=== PATIENT | female | born 2000 | race African-American/Black ===

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

== ENCOUNTER 2020-05-23 10:47 | Emergency (ER) | payer OTHER ==
[2020-05-23 10:57] VITALS: BP 111/73; PULSE 77; TEMP 98.1; BMI 16.5
[2020-05-23 11:20] LABS: EPI CELLS 31 /uL (0-25.1); HCG,QUALITATIVE URINE Negative; HYALINE CASTS 4 /uL (0-3.1); URINE APPEARANCE TURBID; URINE BACTERIA 1101 /uL (0-1359); URINE BILIRUBIN NEGATIVE (NEGATIVE); URINE COLOR YELLOW; URINE GLUCOSE (UA) NEGATIVE (NEGATIVE); URINE KETONE NEGATIVE (NEGATIVE); URINE LEUK ESTERASE 2+ (NEGATIVE); URINE NITRITE NEGATIVE (NEGATIVE); URINE PROTEIN TRACE (NEGATIVE); URINE RBC 47 /uL (0-23.9); URINE UROBILINOGEN 0.2 mg/dL (0.2-1.0); URINE WBC 2531 /uL (0-25.8)
== END 2020-05-23 11:46 | disposition home or self-care (01) ==
LOC: JER 10:47
DX: N30.00 Acute cystitis without hematuria (principal); J02.9 Acute pharyngitis, unspecified
CPT/HCPCS: 36415; 81003; 84703; 87070; 87086; 87491; 87591; 87880; 99283-25

== ENCOUNTER 2020-05-26 10:46 | Emergency (ER) | payer OTHER ==
[2020-05-26] MEDS ORDERED: AZITHROMYCIN 500 MG TABLET PO ONE (11:12)
[2020-05-26 11:19] VITALS: BP 112/54; PULSE 74; TEMP 98.1; BMI 22.2
[2020-05-26] MEDS ORDERED: AZITHROMYCIN 250 MG TABLET ONE (11:20)
== END 2020-05-26 11:26 | disposition home or self-care (01) ==
LOC: JERFT 10:46
DX: A54.9 Gonococcal infection, unspecified (principal)
CPT/HCPCS: 99284-25

== ENCOUNTER 2020-08-13 11:55 | Emergency (ER) | payer OTHER ==
[2020-08-13 12:06] VITALS: BP 115/61; PULSE 87; TEMP 98.2; BMI 22.4
[2020-08-13] MEDS ORDERED: NAPROXEN 500 MG TABLET PO ONE (12:29)
[2020-08-13] MEDS ORDERED: NAPROXEN 500 MG TABLET ONE (12:30)
== END 2020-08-13 13:08 | disposition home or self-care (01) ==
LOC: JER 11:55
DX: M25.562 Pain in left knee (principal)
CPT/HCPCS: 73562-TC-LT-FY; 99283-25

== ENCOUNTER 2020-09-09 10:45 | Emergency (ER) | payer OTHER ==
[2020-09-09 11:02] VITALS: BP 124/86; PULSE 96; TEMP 98.2; BMI 22.9
[2020-09-09 12:26] LABS: HCG,QUALITATIVE URINE Negative
[2020-09-09 12:27] LABS: EPI CELLS >36 /uL (0-25.1); HYALINE CASTS 7 /uL (0-3.1); URINE APPEARANCE CLOUDY; URINE BACTERIA 724 /uL (0-1359); URINE BILIRUBIN NEGATIVE (NEGATIVE); URINE COLOR YELLOW; URINE GLUCOSE (UA) NEGATIVE (NEGATIVE); URINE KETONE NEGATIVE (NEGATIVE); URINE LEUK ESTERASE 3+ (NEGATIVE); URINE NITRITE NEGATIVE (NEGATIVE); URINE PROTEIN TRACE (NEGATIVE); URINE RBC 23 /uL (0-23.9); URINE UROBILINOGEN 0.2 mg/dL (0.2-1.0); URINE WBC 199 /uL (0-25.8)
== END 2020-09-09 13:05 | disposition home or self-care (01) ==
LOC: JER 10:45
DX: N30.01 Acute cystitis with hematuria (principal)
CPT/HCPCS: 81003; 84703; 87086; 99283-25

== ENCOUNTER 2021-05-08 18:51 | Emergency (ER) | payer OTHER ==
[2021-05-08 18:59] VITALS: BMI 26.6
[2021-05-08] MEDS ORDERED: ACETAMINOPHEN 500 MG TABLET (FP) PO ONE (20:28)
[2021-05-08] MEDS ORDERED: ACETAMINOPHEN 500 MG TABLET (FP) ONE (20:30)
[2021-05-08 21:33] VITALS: BP 103/54; PULSE 95; TEMP 98
== END 2021-05-08 21:15 | disposition home or self-care (01) ==
LOC: JERFT 18:51 → JER 18:51
DX: O99.712 Diseases of the skin and subcutaneous tissue complicating pregnancy, second trimester (principal); L05.91 Pilonidal cyst without abscess; Z3A.20 20 weeks gestation of pregnancy
CPT/HCPCS: 99283-25

== ENCOUNTER 2021-08-12 20:31 | Emergency (ER) | payer OTHER ==
[2021-08-12 20:43] VITALS: TEMP 98.1; BMI 30.8
[2021-08-12 22:53] VITALS: BP 114/72; PULSE 102
== END 2021-08-12 22:35 | disposition home or self-care (01) ==
LOC: JER 20:31
DX: O99.513 Diseases of the respiratory system complicating pregnancy, third trimester (principal); R09.81 Nasal congestion; Z3A.33 33 weeks gestation of pregnancy
CPT/HCPCS: 87804; 99283-25

== ENCOUNTER 2021-08-15 02:36 | Emergency (ER) | payer OTHER ==
[2021-08-15 03:10] VITALS: BMI 25.0
[2021-08-15 06:02] VITALS: BP 112/73; PULSE 98; TEMP 9709
== END 2021-08-15 05:19 | disposition home or self-care (01) ==
LOC: JER 02:36
DX: O26.893 Other specified pregnancy related conditions, third trimester (principal); R09.81 Nasal congestion; Z3A.34 34 weeks gestation of pregnancy
CPT/HCPCS: 99283-25

== ENCOUNTER 2021-09-24 16:55 | Inpatient (IN) | payer OTHER ==
[2021-09-24] MEDS ORDERED: ELECTROLYTE-148 SOLN 1,000 ML IV SCH (18:15)
[2021-09-24 18:32] VITALS: BMI 33.3
[2021-09-24] MEDS ORDERED: PROMETHAZINE HCL 25 MG/1 ML VIAL IVPUSH ONE (18:46)
[2021-09-24] MEDS ORDERED: BUTORPHANOL TARTRATE 1 MG/ML VIAL IVPB ONE (18:46)
[2021-09-24] MEDS ORDERED: OXYTOCIN 10 UNITS/ML VIAL ONE (19:05)
[2021-09-24 19:13] LABS: BASO % 0.2 % (0-2.0); EOS % 0.8 % (0-4.5); HEMOGLOBIN 14.1 GM/dL (10.7-15.3); LYMPH % 13.2 % (8-40); MCH 30.7 pg (25.7-33.7); MCHC 34.3 g/dl (32.0-36.0); MEAN CELL VOLUME 89.5 fl (80-96); MONO % 4.7 % (3.8-10.2); NEUT % 81.1 % (42.8-82.8); PLATELET COUNT 223 10^3/uL (134-434); RBC 4.58 M/mm3 (3.60-5.2); RDW 13.7 % (11.6-15.6); WHITE BLOOD COUNT 12.9 K/mm3 (4.0-10.0)
[2021-09-24] MEDS ORDERED: WITCH HAZEL 50% (TUCKS) 40 PAD/JAR PAD TP PRN (19:28)
[2021-09-24] MEDS ORDERED: OXYTOCIN 10 UNITS/ML VIAL IM ONE (19:28)
[2021-09-24] MEDS ORDERED: METHYLERGONOVINE MALEATE 0.2 MG/1 ML AMP IM PRN (19:28)
[2021-09-24] MEDS ORDERED: BENZOCAINE 20% 57 GM BOTTLE TP PRN (19:28)
[2021-09-24] MEDS ORDERED: ACETAMINOPHEN 325 MG TABLET (FP) PO PRN (19:28)
[2021-09-24] MEDS ORDERED: BISACODYL 10 MG SUPP.RECT RC PRN (19:28)
[2021-09-24] MEDS ORDERED: BENZOCAINE 28 GM HEMORRHOIDAL OINTMENT TP PRN (19:28)
[2021-09-24] MEDS ORDERED: oxyCODONE HCL 5 MG TABLET PO PRN (19:28)
[2021-09-24 19:29] LABS: CALCIUM 9.2 mg/dL (8.5-10.1)
[2021-09-24 19:30] LABS: BLOOD UREA NITROGEN 6.5 mg/dL (7-18)
[2021-09-24] MEDS ORDERED: OXYTOCIN 20 UNITS in 0.9% NS 20 UNIT/1,000 ML INFUS.BAG IV SCH (19:30)
[2021-09-24 19:33] LABS: CREATININE 0.5 mg/dL (0.55-1.3)
[2021-09-24 19:36] LABS: ACTIVATED PTT 29.5 SECONDS (25.2-36.5); INR 0.97 (0.83-1.09); PROTHROMBIN TIME (PATIENT) 11.2 SEC (9.7-13.0)
[2021-09-24] MEDS: IBUPROFEN 600 MG TABLET (FP) PO PRN (20:00)
[2021-09-25] MEDS: IBUPROFEN 600 MG TABLET (FP) PO PRN ×4 (03:00→19:12)
[2021-09-25 07:13] LABS: BASO % 0.1 % (0-2.0); EOS % 1.2 % (0-4.5); HEMATOCRIT 36.6 % (32.4-45.2); HEMOGLOBIN 12.5 GM/dL (10.7-15.3); MCH 30.4 pg (25.7-33.7); MCHC 34.1 g/dl (32.0-36.0); MEAN CELL VOLUME 89.1 fl (80-96); MEAN PLT VOLUME 8.1 fl (7.5-11.1); MONO % 5.3 % (3.8-10.2); NEUT % 68.4 % (42.8-82.8); PLATELET COUNT 212 10^3/uL (134-434); RBC 4.11 M/mm3 (3.60-5.2); WHITE BLOOD COUNT 11.5 K/mm3 (4.0-10.0)
[2021-09-25] MEDS: PRENATAL VITAMINS W/ FOLIC ACID TABLET (FP) PO SCH (09:02)
[2021-09-25 21:32] VITALS: PULSE 96
[2021-09-25] MEDS ORDERED: SENNOSIDES/DOCUSATE COMBO (SENNA PLUS) TABLET (UD) PO PRN (22:00)
[2021-09-26] MEDS: IBUPROFEN 600 MG TABLET (FP) PO PRN ×2 (01:35→07:28)
[2021-09-26] MEDS: PRENATAL VITAMINS W/ FOLIC ACID TABLET (FP) PO SCH (09:25)
[2021-09-26 13:34] VITALS: BP 117/74; TEMP 98.4
[2021-09-27 01:23] LABS: HIV INTERPRETATION NEGATIVE (NEGATIVE)
== END 2021-09-26 13:15 | disposition home or self-care (01) | DRG 807 ==
LOC: JLDR 16:55 → J3W 21:27
PROVIDERS: ADMIT Obstetrics & Gynecology; ATTEND Obstetrics & Gynecology
PROC: 10E0XZZ Delivery of Products of Conception, External Approach (ICD-10-PCS; principal; 2021-09-24)
DX: O42.02 Full-term premature rupture of membranes, onset of labor within 24 hours of rupture (principal); Z37.0 Single live birth; O70.0 First degree perineal laceration during delivery; Z3A.40 40 weeks gestation of pregnancy
CPT/HCPCS: 36415; 59409; 80048; 85025; 85610; 85730; 86780; 86850; 86900; 86901; 87389; C9803-CS; U0003; U0005

== ENCOUNTER 2021-10-16 08:09 | Emergency (ER) | payer OTHER ==
[2021-10-16 08:33] VITALS: BP 102/69; PULSE 80; TEMP 98.4; BMI 30.2
== END 2021-10-16 09:41 | disposition home or self-care (01) ==
LOC: JER 08:09 → JERFT 08:09
DX: L05.91 Pilonidal cyst without abscess (principal)
CPT/HCPCS: 99282-25

== ENCOUNTER 2021-10-18 21:12 | Emergency (ER) | payer OTHER ==
[2021-10-18 21:36] VITALS: BP 108/61; PULSE 108; TEMP 98.4; BMI 30.2
== END 2021-10-19 01:51 | disposition home or self-care (01) ==
LOC: JER 21:12 → JERFT 21:12 → JER 10-19 01:51
PROC: 0H98XZZ Drainage of Buttock Skin, External Approach (ICD-10-PCS; principal; 2021-10-18)
DX: L05.91 Pilonidal cyst without abscess (principal)
CPT/HCPCS: 99282-25

== ENCOUNTER 2022-05-21 22:44 | Emergency (ER) | payer OTHER ==
[2022-05-21 22:50] VITALS: BP 115/77; PULSE 72; RESP 16; TEMP 98; BMI 26.3
== END 2022-05-22 04:05 | disposition left against medical advice (07) ==
LOC: JER 22:44
DX: Z20.2 Contact with and (suspected) exposure to infections with a predominantly sexual mode of transmission (principal)
CPT/HCPCS: 99282-25

== ENCOUNTER 2022-05-23 19:27 | Emergency (ER) | payer OTHER ==
[2022-05-23 19:47] VITALS: BP 114/80; PULSE 85; RESP 19; TEMP 98.3; BMI 41.8
[2022-05-23 21:22] LABS: EPI CELLS >36 /uL (0-25.1); HYALINE CASTS 5 /uL (0-3.1); URINE APPEARANCE CLOUDY; URINE BACTERIA 887 /uL (0-1359); URINE BILIRUBIN NEGATIVE (NEGATIVE); URINE COLOR YELLOW; URINE GLUCOSE (UA) NEGATIVE (NEGATIVE); URINE KETONE TRACE (NEGATIVE); URINE LEUK ESTERASE 2+ (NEGATIVE); URINE NITRITE NEGATIVE (NEGATIVE); URINE PROTEIN NEGATIVE (NEGATIVE); URINE RBC 6 /uL (0-23.9); URINE WBC 180 /uL (0-25.8)
== END 2022-05-23 20:55 | disposition home or self-care (01) ==
LOC: JER 19:27 → JERFT 19:27
DX: Z11.3 Encounter for screening for infections with a predominantly sexual mode of transmission (principal)
CPT/HCPCS: 36415; 81003; 86780; 87086; 87491; 87529; 87591; 99283-25

== ENCOUNTER 2022-06-24 05:02 | Emergency (ER) | payer OTHER ==
[2022-06-24 05:13] VITALS: BP 105/69; PULSE 82; RESP 20; TEMP 98.2; BMI 37.0
[2022-06-24] MEDS ORDERED: ALBUTEROL SO4 2.5/IPRATROPIUM 0.5 INH SOL 3 ML VIAL.NEB. NEB ONE ×2 (05:25→05:28)
[2022-06-24] MEDS ORDERED: predniSONE 20 MG TABLET (UD) PO ONE (05:25)
[2022-06-24] MEDS ORDERED: predniSONE 20 MG TABLET (UD) ONE (05:29)
== END 2022-06-24 06:34 | disposition home or self-care (01) ==
LOC: JER 05:02
DX: J45.901 Unspecified asthma with (acute) exacerbation (principal); Z20.822 Contact with and (suspected) exposure to COVID-19
CPT/HCPCS: 0241U-QW; 99283-25

== ENCOUNTER 2023-05-10 15:32 | Emergency (ER) | payer OTHER ==
[2023-05-10 15:40] VITALS: BMI 35.2
[2023-05-10 17:06] LABS: BASO % 0.6 % (0-2.0); EOS % 3.6 % (0-4.5); HEMATOCRIT 43.1 % (32.4-45.2); HEMOGLOBIN 14.3 GM/dL (10.7-15.3); MCH 27.7 pg (25.7-33.7); MCHC 33.2 g/dl (32.0-36.0); MEAN CELL VOLUME 83.4 fl (80-96); MEAN PLT VOLUME 7.7 fl (7.5-11.1); NEUT % 59.8 % (42.8-82.8); PLATELET COUNT 331 10^3/uL (134-434); RBC 5.17 M/mm3 (3.60-5.2); RDW 14.7 % (11.6-15.6); WHITE BLOOD COUNT 9.1 K/mm3 (4.0-10.0)
[2023-05-10 17:25] LABS: POTASSIUM 3.8 mmol/L (3.5-5.1)
[2023-05-10 17:27] LABS: BLOOD UREA NITROGEN 5.3 mg/dL (7-18)
[2023-05-10 17:30] LABS: CREATININE 0.7 mg/dL (0.55-1.3)
[2023-05-10] MEDS ORDERED: ARIPiprazole 5 MG TABLET PO ONE (22:00)
[2023-05-10] MEDS ORDERED: ARIPiprazole 5 MG TABLET ONE (22:04)
[2023-05-11 07:02] VITALS: RESP 18
[2023-05-11 09:53] VITALS: BP 115/58; PULSE 93; TEMP 98.3
[2023-05-11 11:27] LABS: EPI CELLS >36 /uL (0-25.1); HYALINE CASTS 2 /uL (0-3.1); URINE APPEARANCE CLEAR; URINE BACTERIA 962 /uL (0-1359); URINE BILIRUBIN NEGATIVE (NEGATIVE); URINE COLOR YELLOW; URINE GLUCOSE (UA) NEGATIVE (NEGATIVE); URINE KETONE NEGATIVE (NEGATIVE); URINE LEUK ESTERASE 2+ (NEGATIVE); URINE NITRITE NEGATIVE (NEGATIVE); URINE PROTEIN NEGATIVE (NEGATIVE); URINE RBC 26 /uL (0-23.9); URINE WBC 425 /uL (0-25.8)
[2023-05-11 14:05] LABS: PHENCYCLIDINE,URINE NEGATIVE (NEGATIVE)
[2023-05-11 14:06] LABS: COCAINE, UR NEGATIVE (NEGATIVE); OPIATES, URI NEGATIVE (NEGATIVE); URINE AMPHETAMINES NEGATIVE (NEGATIVE); URINE BARBITURATES NEGATIVE (NEGATIVE)
[2023-05-11 14:46] LABS: METHADONE, UR NEGATIVE (NEGATIVE); URINE BENZODIAZEPINES NEGATIVE (NEGATIVE)
== END 2023-05-11 13:49 | disposition home or self-care (01) ==
LOC: JER 15:32 → JERFT 15:32 → JER 05-11 13:49
DX: R21 Rash and other nonspecific skin eruption (principal); L53.9 Erythematous condition, unspecified
CPT/HCPCS: 36415; 80048; 80307; 81003; 84443; 85025; 87086; 93005; 93010; 99284-25

== ENCOUNTER 2023-05-26 13:45 | Emergency (ER) | payer OTHER ==
[2023-05-26 13:51] VITALS: BP 115/76; PULSE 82; RESP 18; TEMP 98.1; BMI 38.3
== END 2023-05-26 15:34 | disposition home or self-care (01) ==
LOC: JERFT 13:45
DX: Z32.02 Encounter for pregnancy test, result negative (principal)
CPT/HCPCS: 36415; 84703; 99283-25

== ENCOUNTER 2023-06-02 13:06 | Emergency (ER) | payer OTHER ==
[2023-06-02 13:21] VITALS: BP 113/71; PULSE 97; RESP 18; TEMP 98; BMI 39.4
== END 2023-06-02 16:23 | disposition home or self-care (01) ==
LOC: JER 13:06 → JERFT 13:06
DX: N64.4 Mastodynia (principal); Z32.02 Encounter for pregnancy test, result negative
CPT/HCPCS: 36415; 84703; 99283-25

== ENCOUNTER 2023-06-20 16:52 | Emergency (ER) | payer OTHER ==
[2023-06-20 16:59] VITALS: BP 109/75; PULSE 90; RESP 18; TEMP 97.8; BMI 39.1
[2023-06-20 18:16] LABS: BASO % 0.4 % (0-2.0); EOS % 3.8 % (0-4.5); HEMATOCRIT 40.1 % (32.4-45.2); HEMOGLOBIN 13.4 GM/dL (10.7-15.3); MCH 28.1 pg (25.7-33.7); MCHC 33.5 g/dl (32.0-36.0); MEAN CELL VOLUME 83.9 fl (80-96); MEAN PLT VOLUME 7.5 fl (7.5-11.1); MONO % 4.6 % (3.8-10.2); NEUT % 65.2 % (42.8-82.8); PLATELET COUNT 282 10^3/uL (134-434); RBC 4.78 M/mm3 (3.60-5.2); RDW 15.8 % (11.6-15.6); WHITE BLOOD COUNT 8.5 K/mm3 (4.0-10.0)
[2023-06-20 18:42] LABS: POTASSIUM 4.1 mmol/L (3.5-5.1)
[2023-06-20 18:44] LABS: ALBUMIN 3.2 g/dl (3.4-5.0); BLOOD UREA NITROGEN 5.8 mg/dL (7-18); CALCIUM 8.9 mg/dL (8.5-10.1)
[2023-06-20 18:47] LABS: CREATININE 0.6 mg/dL (0.55-1.3)
[2023-06-20 18:49] LABS: BILIRUBIN,TOTAL 0.2 mg/dL (0.2-1); TOT PROT 7.4 g/dl (6.4-8.2)
== END 2023-06-20 19:22 | disposition home or self-care (01) ==
LOC: JER 16:52
DX: O99.891 Other specified diseases and conditions complicating pregnancy (principal); R22.1 Localized swelling, mass and lump, neck; Z3A.01 Less than 8 weeks gestation of pregnancy
CPT/HCPCS: 36415; 80053; 84443; 85025; 87651; 99283-25

== ENCOUNTER 2023-06-29 18:40 | Emergency (ER) | payer OTHER ==
[2023-06-29 18:59] VITALS: BP 113/68; PULSE 90; RESP 16; TEMP 98.3; BMI 37.2
[2023-06-29 20:38] LABS: EPI CELLS >36 /uL (0-25.1); HYALINE CASTS 1 /uL (0-3.1); PH,URINE 5.5 (5.0-8.0); URINE APPEARANCE CLEAR; URINE BACTERIA 38 /uL (0-1359); URINE BILIRUBIN NEGATIVE (NEGATIVE); URINE COLOR YELLOW; URINE GLUCOSE (UA) NEGATIVE (NEGATIVE); URINE KETONE NEGATIVE (NEGATIVE); URINE LEUK ESTERASE 2+ (NEGATIVE); URINE NITRITE NEGATIVE (NEGATIVE); URINE PROTEIN NEGATIVE (NEGATIVE); URINE RBC 20 /uL (0-23.9); URINE UROBILINOGEN 0.2 mg/dL (0.2-1.0); URINE WBC 126 /uL (0-25.8)
[2023-06-29] MEDS ORDERED: MICONAZOLE NITRATE 14 GM/TUBE TUBE TP SCH (22:00)
== END 2023-06-29 21:27 | disposition home or self-care (01) ==
LOC: JER 18:40 → JERFT 18:40
DX: O23.591 Infection of other part of genital tract in pregnancy, first trimester (principal); B37.9 Candidiasis, unspecified; Z3A.01 Less than 8 weeks gestation of pregnancy
CPT/HCPCS: 81003; 82962; 84703; 87077; 87086; 99283-25

== ENCOUNTER 2023-07-04 06:19 | Emergency (ER) | payer OTHER ==
[2023-07-04 06:26] VITALS: BP 105/67; PULSE 78; RESP 20; TEMP 98.7; BMI 38.2
[2023-07-04] MEDS ORDERED: ACETAMINOPHEN 500 MG TABLET (FP) ONE (08:23)
[2023-07-04] MEDS: ACETAMINOPHEN 325 MG TABLET (FP) PO ONE (08:25)
[2023-07-04 08:29] LABS: BASO % 0.5 % (0-2.0); EOS % 6.1 % (0-4.5); HEMATOCRIT 39.7 % (32.4-45.2); LYMPH % 35.6 % (8-40); MCH 27.8 pg (25.7-33.7); MCHC 32.8 g/dl (32.0-36.0); MEAN CELL VOLUME 84.7 fl (80-96); MEAN PLT VOLUME 7.5 fl (7.5-11.1); MONO % 5.8 % (3.8-10.2); PLATELET COUNT 276 10^3/uL (134-434); RBC 4.69 M/mm3 (3.60-5.2); RDW 15.2 % (11.6-15.6); WHITE BLOOD COUNT 8.4 K/mm3 (4.0-10.0)
[2023-07-04 08:29] LABS: EPI CELLS >36 /uL (0-25.1); HYALINE CASTS 1 /uL (0-3.1); PH,URINE 6.5 (5.0-8.0); URINE APPEARANCE CLEAR; URINE BACTERIA 57 /uL (0-1359); URINE BILIRUBIN NEGATIVE (NEGATIVE); URINE COLOR YELLOW; URINE GLUCOSE (UA) NEGATIVE (NEGATIVE); URINE KETONE NEGATIVE (NEGATIVE); URINE LEUK ESTERASE 1+ (NEGATIVE); URINE NITRITE NEGATIVE (NEGATIVE); URINE PROTEIN NEGATIVE (NEGATIVE); URINE RBC 11 /uL (0-23.9); URINE UROBILINOGEN 0.2 mg/dL (0.2-1.0); URINE WBC 46 /uL (0-25.8)
[2023-07-04 08:51] LABS: POTASSIUM 3.8 mmol/L (3.5-5.1)
[2023-07-04 08:54] LABS: ALBUMIN 3.2 g/dl (3.4-5.0); BLOOD UREA NITROGEN 6.4 mg/dL (7-18); CALCIUM 8.8 mg/dL (8.5-10.1)
[2023-07-04 08:58] LABS: CREATININE 0.7 mg/dL (0.55-1.3)
[2023-07-04 09:00] LABS: BILIRUBIN,TOTAL 0.2 mg/dL (0.2-1); TOT PROT 7.2 g/dl (6.4-8.2)
[2023-07-04 11:14] LABS: EPI CELLS >36 /uL (0-25.1); HYALINE CASTS 5 /uL (0-3.1); PH,URINE 6.5 (5.0-8.0); URINE APPEARANCE TURBID; URINE BILIRUBIN NEGATIVE (NEGATIVE); URINE COLOR DK YELLOW; URINE GLUCOSE (UA) NEGATIVE (NEGATIVE); URINE KETONE TRACE (NEGATIVE); URINE LEUK ESTERASE 2+ (NEGATIVE); URINE NITRITE NEGATIVE (NEGATIVE); URINE PROTEIN 1+ (NEGATIVE); URINE RBC 16 /uL (0-23.9); URINE WBC 47 /uL (0-25.8)
[2023-07-04 11:42] LABS: URINE BACTERIA 1061.7 /uL (0-1359)
== END 2023-07-04 13:25 | disposition home or self-care (01) ==
LOC: JER 06:19
DX: O26.891 Other specified pregnancy related conditions, first trimester (principal); R10.30 Lower abdominal pain, unspecified; O23.41 Unspecified infection of urinary tract in pregnancy, first trimester; Z3A.01 Less than 8 weeks gestation of pregnancy; O26.851 Spotting complicating pregnancy, first trimester
CPT/HCPCS: 36415; 76817-TC; 80053; 81003; 84702; 85025; 86850; 86900; 86901; 87086; 99284-25

== ENCOUNTER 2023-07-07 10:51 | Emergency (ER) | payer OTHER ==
[2023-07-07 10:59] VITALS: BP 117/75; PULSE 95; RESP 18; TEMP 97.8; BMI 38.2
[2023-07-07 12:22] LABS: BASO % 0.5 % (0-2.0); EOS % 2.2 % (0-4.5); HEMATOCRIT 41.3 % (32.4-45.2); LYMPH % 26.6 % (8-40); MCH 28.4 pg (25.7-33.7); MCHC 33.8 g/dl (32.0-36.0); MEAN CELL VOLUME 83.9 fl (80-96); MEAN PLT VOLUME 7.7 fl (7.5-11.1); MONO % 2.8 % (3.8-10.2); NEUT % 67.9 % (42.8-82.8); PLATELET COUNT 291 10^3/uL (134-434); RBC 4.92 M/mm3 (3.60-5.2)
[2023-07-07 12:26] LABS: EPI CELLS >36 /uL (0-25.1); HYALINE CASTS 1 /uL (0-3.1); URINE APPEARANCE CLEAR; URINE BACTERIA 314 /uL (0-1359); URINE BILIRUBIN NEGATIVE (NEGATIVE); URINE COLOR YELLOW; URINE GLUCOSE (UA) NEGATIVE (NEGATIVE); URINE KETONE NEGATIVE (NEGATIVE); URINE LEUK ESTERASE 2+ (NEGATIVE); URINE NITRITE NEGATIVE (NEGATIVE); URINE PROTEIN TRACE (NEGATIVE); URINE RBC 22 /uL (0-23.9); URINE UROBILINOGEN 0.2 mg/dL (0.2-1.0); URINE WBC 39 /uL (0-25.8)
[2023-07-07 12:31] LABS: POTASSIUM 5.1 mmol/L (3.5-5.1)
[2023-07-07 12:33] LABS: CALCIUM 9.3 mg/dL (8.5-10.1)
[2023-07-07 12:34] LABS: ALBUMIN 3.1 g/dl (3.4-5.0); BLOOD UREA NITROGEN 6.1 mg/dL (7-18)
[2023-07-07 12:37] LABS: CREATININE 0.6 mg/dL (0.55-1.3)
[2023-07-07 12:39] LABS: BILIRUBIN,TOTAL 0.4 mg/dL (0.2-1); TOT PROT 7.5 g/dl (6.4-8.2)
[2023-07-07] MEDS ORDERED: ACETAMINOPHEN 500 MG TABLET (FP) ONE (13:11)
[2023-07-07] MEDS: ACETAMINOPHEN 500 MG TABLET (FP) PO ONE (13:59)
== END 2023-07-07 14:12 | disposition home or self-care (01) ==
LOC: JER 10:51
DX: O20.9 Hemorrhage in early pregnancy, unspecified (principal); O26.891 Other specified pregnancy related conditions, first trimester; R10.30 Lower abdominal pain, unspecified; Z3A.08 8 weeks gestation of pregnancy
CPT/HCPCS: 36415; 76817-TC; 80053; 81003; 84702; 84703; 85025; 86850; 86900; 86901; 87086; 99284-25

== ENCOUNTER 2023-11-01 00:24 | Emergency (ER) | payer OTHER ==
[2023-11-01 00:43] VITALS: BP 110/75; PULSE 106; RESP 20; TEMP 98.4; BMI 39.7
== END 2023-11-01 02:30 | disposition left against medical advice (07) ==
LOC: JER 00:24
DX: O99.512 Diseases of the respiratory system complicating pregnancy, second trimester (principal); J00 Acute nasopharyngitis [common cold]; Z3A.24 24 weeks gestation of pregnancy
CPT/HCPCS: 99281-25

== ENCOUNTER 2023-11-01 17:39 | Emergency (ER) | payer OTHER ==
[2023-11-01 17:46] VITALS: BP 119/62; PULSE 118; RESP 18; TEMP 98.5; BMI 39.7
== END 2023-11-01 18:55 | disposition home or self-care (01) ==
LOC: JERFT 17:39
DX: O99.512 Diseases of the respiratory system complicating pregnancy, second trimester (principal); J06.9 Acute upper respiratory infection, unspecified; R09.81 Nasal congestion; R05.9 Cough, unspecified; Z3A.24 24 weeks gestation of pregnancy
CPT/HCPCS: 99283-25

== ENCOUNTER 2023-11-19 03:56 | Emergency (ER) | payer OTHER ==
[2023-11-19 04:07] VITALS: BP 107/71; PULSE 100; RESP 20; TEMP 98.6; BMI 39.7
== END 2023-11-19 04:53 | disposition home or self-care (01) ==
LOC: JER 03:56
DX: O99.891 Other specified diseases and conditions complicating pregnancy (principal); R06.02 Shortness of breath; Z3A.00 Weeks of gestation of pregnancy not specified
CPT/HCPCS: 99283-25

== ENCOUNTER 2024-02-11 11:30 | Inpatient (IN) | payer OTHER ==
[2024-02-11 12:57] VITALS: BMI 41.6
[2024-02-11 12:58] LABS: BASO % 0.3 % (0-2.0); EOS % 3.2 % (0-4.5); HEMATOCRIT 36.5 % (32.4-45.2); LYMPH % 27.8 % (8-40); MCH 27.1 pg (25.7-33.7); MCHC 32.9 g/dl (32.0-36.0); MEAN CELL VOLUME 82.4 fl (80-96); MEAN PLT VOLUME 8.1 fl (7.5-11.1); MONO % 6.6 % (3.8-10.2); NEUT % 62.1 % (42.8-82.8); PLATELET COUNT 233 10^3/uL (134-434); RBC 4.43 M/mm3 (3.60-5.2); RDW 15.5 % (11.6-15.6); WHITE BLOOD COUNT 8.4 K/mm3 (4.0-10.0)
[2024-02-11 13:05] LABS: INR 0.98 (0.83-1.09); PROTHROMBIN TIME (PATIENT) 11.1 SEC (9.7-13.0)
[2024-02-11 13:08] LABS: ACTIVATED PTT 26.2 SECONDS (25.2-36.5)
[2024-02-11 13:15] LABS: POTASSIUM 3.8 mmol/L (3.5-5.1)
[2024-02-11 13:16] LABS: CALCIUM 9.4 mg/dL (8.5-10.1)
[2024-02-11 13:17] LABS: BLOOD UREA NITROGEN 5.1 mg/dL (7-18)
[2024-02-11 13:20] LABS: CREATININE 0.5 mg/dL (0.55-1.3)
[2024-02-11] MEDS: ELECTROLYTE-148 SOLN 1,000 ML IV SCH (14:00)
[2024-02-11] MEDS ORDERED: OXYTOCIN 30 UNITS in 0.9% NS 30 UNIT/500 ML INFUS.BAG IVPB ONE (14:31)
[2024-02-11] MEDS: OXYTOCIN 30 UNITS in 0.9% NS 30 UNIT/500 ML INFUS.BAG IVPB SCH (14:45)
[2024-02-11 14:46] LABS: HIV INTERPRETATION NEGATIVE (NEGATIVE)
[2024-02-12] MEDS ORDERED: BUTORPHANOL TARTRATE 2 MG/ML VIAL ONE (00:21)
[2024-02-12] MEDS ORDERED: PROMETHAZINE HCL 25 MG/1 ML VIAL ONE (00:22)
[2024-02-12] MEDS: PROMETHAZINE HCL 25 MG/1 ML VIAL IVPB ONE (00:30)
[2024-02-12] MEDS: BUTORPHANOL TARTRATE 2 MG/ML VIAL IVPB PRN (00:30)
[2024-02-12] MEDS ORDERED: OXYTOCIN 20 UNITS in 0.9% NS 20 UNIT/1,000 ML INFUS.BAG IV ONE (03:48)
[2024-02-12] MEDS ORDERED: LIDOCAINE HCL 1% PRESERVATIVE FREE - 30ML VIAL ONE (03:49)
[2024-02-12] MEDS: OXYTOCIN 20 UNITS in 0.9% NS 20 UNIT/1,000 ML INFUS.BAG IV SCH (04:28)
[2024-02-12] MEDS ORDERED: IBUPROFEN 600 MG TABLET (FP) PO ONE ×2 (04:50→08:26)
[2024-02-12] MEDS: IBUPROFEN 600 MG TABLET (FP) PO PRN (04:50)
[2024-02-12] MEDS ORDERED: oxyCODONE HCL 5 MG TABLET PO PRN (05:09)
[2024-02-12] MEDS ORDERED: ACETAMINOPHEN 325 MG TABLET (FP) PO PRN (05:09)
[2024-02-12] MEDS ORDERED: BENZOCAINE 20% 57 GM BOTTLE TP PRN (05:09)
[2024-02-12] MEDS ORDERED: METHYLERGONOVINE MALEATE 0.2 MG/1 ML AMP IM PRN (05:09)
[2024-02-12] MEDS ORDERED: WITCH HAZEL 50% (TUCKS) 40 PAD/JAR PAD TP PRN (05:09)
[2024-02-12] MEDS ORDERED: BISACODYL 10 MG SUPP.RECT RC PRN (05:09)
[2024-02-12] MEDS ORDERED: BENZOCAINE 28 GM HEMORRHOIDAL OINTMENT TP PRN (05:09)
[2024-02-12 05:13] LABS: CORD BASE EXCESS -3.5 mmol/L (0-2); CORD BASE EXCESS -3.8 mmol/L (0-2); CORD HCO3 21.8 mmHg (20-29); CORD HCO3 25.3 mmHg (20-29); CORD PCO2 41.6 mmHg (30-78); CORD PCO2 61.4 mmHg (30-78); CORD pH 7.233 (7.14-7.44); CORD pH 7.337 (7.14-7.44)
[2024-02-12 08:42] VITALS: RESP 18
[2024-02-12] MEDS: FERROUS SO4 325 MG TABLET (FP) PO SCH (09:46)
[2024-02-12] MEDS: PRENATAL VITAMINS W/ FOLIC ACID TABLET (FP) PO SCH (09:46)
[2024-02-12] MEDS: ARIPiprazole 5 MG TABLET PO SCH (22:10)
[2024-02-13 07:23] LABS: BASO % 0.3 % (0-2.0); EOS % 3.9 % (0-4.5); HEMATOCRIT 28.7 % (32.4-45.2); HEMOGLOBIN 9.5 GM/dL (10.7-15.3); LYMPH % 36.1 % (8-40); MCH 27.4 pg (25.7-33.7); MCHC 33.1 g/dl (32.0-36.0); MEAN CELL VOLUME 82.7 fl (80-96); MEAN PLT VOLUME 7.9 fl (7.5-11.1); MONO % 5.2 % (3.8-10.2); NEUT % 54.5 % (42.8-82.8); PLATELET COUNT 205 10^3/uL (134-434); RBC 3.47 M/mm3 (3.60-5.2); RDW 15.5 % (11.6-15.6); WHITE BLOOD COUNT 10.4 K/mm3 (4.0-10.0)
[2024-02-13] MEDS ORDERED: SENNOSIDES/DOCUSATE COMBO (SENNA PLUS) TABLET (UD) PO PRN (22:00)
[2024-02-14 09:22] VITALS: BP 112/62; PULSE 93; TEMP 98.4
== END 2024-02-14 14:25 | disposition home or self-care (01) | DRG 806 ==
LOC: JLDR 11:30 → J3W 02-12 08:30
PROVIDERS: ADMIT Obstetrics & Gynecology; ATTEND Obstetrics & Gynecology
PROC: 10E0XZZ Delivery of Products of Conception, External Approach (ICD-10-PCS; principal; 2024-02-12)
DX: O41.03X0 Oligohydramnios, third trimester, not applicable or unspecified (principal); O72.1 Other immediate postpartum hemorrhage; Z3A.40 40 weeks gestation of pregnancy; Z37.0 Single live birth
CPT/HCPCS: 36415; 36600; 59409; 80048; 82803; 85025; 85610; 85730; 86780; 86803; 86850; 86900; 86901; 87389

== ENCOUNTER 2024-03-13 01:31 | Emergency (ER) | payer OTHER ==
[2024-03-13 01:43] VITALS: BP 116/66; PULSE 72; RESP 18; TEMP 98.8; BMI 31.3
[2024-03-13] MEDS ORDERED: AMOX TR/POT CLAV 500MG/125MG TABLETS (FP) ONE (02:47)
[2024-03-13] MEDS: METHYLERGONOVINE MALEATE 0.2 MG TABLET (FP) PO ONE (02:52)
[2024-03-13] MEDS: AMOX TR/POT CLAV 500MG/125MG TABLETS (FP) PO ONE (02:52)
== END 2024-03-13 03:00 | disposition home or self-care (01) ==
LOC: JER 01:31
DX: O72.2 Delayed and secondary postpartum hemorrhage (principal)
CPT/HCPCS: 99284-25

== ENCOUNTER 2024-04-06 04:21 | Day surgery (SDC) | payer OTHER ==
[2024-04-03 15:34] VITALS: BMI 39.9
[2024-04-06] MEDS ORDERED: MIDAZOLAM HCL 2 MG/2 ML SINGLE DOSE VIAL ONE ×2 (09:46→12:00)
[2024-04-06] MEDS ORDERED: SUCCINYLCHOLINE CHLORIDE 200 MG/10 ML SYRINGE ONE (09:46)
[2024-04-06] MEDS ORDERED: PROPOFOL 20 ML ONE ×3 (09:46→11:59)
[2024-04-06] MEDS ORDERED: ACETAMINOPHEN 325 MG TABLET (FP) PO PRN (10:01)
[2024-04-06] MEDS ORDERED: IBUPROFEN 400 MG TABLET (FP) PO PRN (10:01)
[2024-04-06] MEDS ORDERED: DEXAMETHASONE SOD PHOSPHATE 4 MG/1 ML VIAL ONE ×2 (10:17→12:29)
[2024-04-06] MEDS ORDERED: KETOROLAC TROMETHAMINE 30 MG/1 ML VIAL ONE ×2 (10:17→12:29)
[2024-04-06] MEDS ORDERED: ONDANSETRON 4 MG/2 ML VIAL ONE ×2 (10:17→12:29)
[2024-04-06] MEDS ORDERED: ceFAZolin SODIUM 1 GM VIAL ONE (10:21)
[2024-04-06] MEDS: ceFAZolin SODIUM 1 GM VIAL IVPB ONE (10:22)
[2024-04-06 12:27] VITALS: RESP 18
[2024-04-06] MEDS ORDERED: ONDANSETRON 4 MG/2 ML VIAL IVPUSH PRN (13:03)
[2024-04-06] MEDS ORDERED: oxyCODONE HCL 5 MG TABLET PO PRN (13:03)
[2024-04-06] MEDS ORDERED: LACTATED RINGERS SOLUTION 1,000 ML IV SCH (13:15)
[2024-04-06 14:17] VITALS: BP 116/62; PULSE 82; TEMP 97.7
== END 2024-04-06 13:30 | disposition home or self-care (01) ==
LOC: JASU-SURG 04:21
PROVIDERS: ATTEND Obstetrics & Gynecology
PROC: 10D17ZZ Extraction of Products of Conception, Retained, Via Natural or Artificial Opening (ICD-10-PCS; principal; 2024-04-06 09:45)
DX: O72.2 Delayed and secondary postpartum hemorrhage (principal)
CPT/HCPCS: 88305-TC; 94760